=== PATIENT | female | born 1950 | race Caucasian/White ===

== ENCOUNTER → 2023-06-24 10:35 | Outpatient (CLI) | payer MEDICARE, OTHER, SELFPAY ==
--- NOTE | 2023-06-24 | DI.MRI.S_ITS ---
PROCEDURE: MR SHOULDER LT WO CON INDICATIONS: STRAIN OF ROTATOR CUFF TECHNIQUE: Noncontrast oblique coronal T2 fast spin echo with fat saturation, oblique sagittal T1 spin echo and T2 fast spin echo with fat saturation, axial T1 spin echo and T2 fast spin echo with fat saturation through the shoulder. COMPARISON: [facility] Outside Film, RG, SHOULDER MIN 2VW (LT), 04/10/2023, 8:55. FINDINGS: Image quality: Excellent. Rotator cuff: There is moderate supraspinatus and subscapularis tendinosis without high-grade tendon tear. The infraspinatus tendon appears intact throughout. Sagittal images demonstrate no rotator cuff muscle atrophy. Bones and bursae: No bone marrow contusions or fractures. Mild acromioclavicular joint degeneration. The acromion demonstrates conventional anatomy, without an os acromiale. There is subcoracoid bursal fluid consistent with bursitis. Small glenohumeral joint effusion. Capsule and soft tissues: The long head of the biceps tendon demonstrates normal location and morphology. There is a 1.2 x 2.4 x 3.0 cm mildly complex cyst or fluid collection adjacent to the posterior superior labrum. The rotator interval appears irregular with fibrosis. The coracohumeral ligament is thickened. IMPRESSION: 1. Moderate supraspinatus and subscapularis tendinosis without high-grade tendon tear. 2. Subcoracoid bursitis. 3. A 1.2 x 2.4 x 3.0 cm mildly complex cyst or fluid collection adjacent to the posterior superior labrum. Question occult labral tear. A differential diagnosis is a synovial cyst. 4. Thickening of the coracohumeral ligament. The rotator interval is irregular with fibrosis. The findings are associated with adhesive capsulitis recommend clinical correlation. Dictated by: Christiano Jerome M.D. on 06/25/2023 at 11:47 Approved by: Christiano Jerome M.D. on 06/25/2023 at 12:03
== END ==
PROVIDERS: PCP Internal Medicine; Referring Provider Orthopaedic Surgery; Visit Provider Orthopaedic Surgery
DX: S46.012A Strain of muscle(s) and tendon(s) of the rotator cuff of left shoulder, initial encounter (principal); M75.52 Bursitis of left shoulder
CPT/HCPCS: 73221